=== PATIENT | female | born 1985 | race Caucasian/White ===

== ENCOUNTER 2017-06-13 02:14 | Emergency (ER) | payer BC ==
[~2017-06-13 02:14] MED LIST: IBUP600 PO; OXYC1SOL5 PO; PNVPAK PO
--- NOTE | 2017-06-13 02:55 | PD ---
HPI Chief Complaint 35 weeks and 6 days vaginal bleed Travel History International Travel<30 Days: No Contact w/Intl Traveler<30Days: No Known Affected Area: No History of Present Illness HPI Pt is a 31 yo at 35 weeks and 6 days Pt has EDC 07-12-[address] Daley. Care complicated by previous C Section for arrest of cervical dilatation. Patient reports bright red vaginal bleeding when she used the bathroom. No ongoing bleeding. Patient denies any abdominal pain or contractions. Patient reports active movements Patient is Rh positive. Patient is planning a Weeks Gestation: 35 Para: 1 : 2 History Past Medical History Medical History: Denies Significant Hx Obstetric History Obstetric History Previous c section Past Surgical History Narrative Surgical previous C Section Family History Family History: Negative Social History Alcohol Use: No Tobacco Use: No Substance Abuse: No Allergies-Medications (Allergen,Severity, Reaction): Coded Allergies: No Known Allergies (Unverified , 01/22/15) Home Meds Active Scripts Oxycodone W/ Acetaminophen (Oxycodone/Acetaminophen 5-325 mg/5Ml) 1 Tab Tab, 1 TAB PO Q4H Y for PAIN SCALE 3 TO 5, #30 TAB Prov:Tracie Patiño MD 01/25/15 Ibuprofen (Motrin 600 Mg Tab) 600 Mg Tab, 600 MG PO Q6H Y for CRAMPING, #30 TAB Prov:Tracie Patiño MD 01/25/15 Reported Medications W/O Vit A W/ Fe Carbo (Pnv Ob+Dha) Ermias, 1 CAP PO, ERMIAS 01/22/15 Review of Systems Except as stated in HPI: all other systems reviewed are Neg Physical Exam Narrative GENERAL: Well-nourished, well-developed patient. SKIN: Warm and dry. HEAD: Normocephalic and atraumatic. EYES: No scleral icterus. No injection or drainage. ENT: No nasal drainage noted. Mucous membranes pink. Airway patent. NECK: Supple, trachea midline. No JVD. CARDIOVASCULAR: Regular rate and rhythm without murmurs, gallops, or rubs. RESPIRATORY: Breath sounds equal bilaterally. No accessory muscle use. BREASTS: Bilateral exam showed no masses , no retractions, no nipple discharge. ABDOMEN/GI: Abdomen soft, non-tender, bowel sounds present, no rebound, no guarding Gravid to [36] weeks size Fundal Height: [36cm] GENITOURINARY: External Genitalia: intact and normal in appearance BUS glands: [wnl] SSE: speculum introduced gently, and cervix visualized. No active vaginal bleeding noted. Cervix appears closed. small amount of dark blood noted. Cervix: [firm] Dilatation: [closed] Effacement: [30%] Station: [-3] Presentation: [vertex] Membranes: [intact] Uterine Contractions: [every 3 minutes] patient not feeling them FHT's: Category: [1] Baseline: [130s] Reactive: [-] Variability: [moderate] Decels: [-] EXTREMITIES: No cyanosis or edema. BACK: Nontender without obvious deformity. No CVA tenderness. NEUROLOGICAL: Awake and alert. Motor and sensory grossly within normal limits. Five out of 5 muscle strength in all muscle groups. Normal speech. Data Data Vital Signs Reviewed: Yes MDM Plan Patient is a 31 yo at 35 weeks and 6 days with c/o vaginal bleeding. status reassuring No ongoing bleeding noted. No abdominal pain Active movements Contractions noted every 3 minutes and IVF started. Contractions resolved after IVF No further vaginal bleeding. Will DC home. Diagnosis Diagnosis: Primary Impression: 35 weeks gestation of Additional Impressions: with third trimester bleeding uterine contractions in third trimester, antepartum Disposition: DISCHARGE HOME Condition: Good [place] MD Jun 13, 2017 02:55
[2017-06-13 03:01] LABS: BACTERIA, URINE RARE /hpf; BILIRUBIN, URINE NEG (NEG); BLOOD, URINE MOD (NEG); GLUCOSE,URINE NEG (NEG); KETONE, URINE NEG (NEG); MUCUS URINE FEW /lpf (OCC); NITRITE,URINE NEG (NEG); PH, URINE 6.5 (5.0-8.5); SQUAMOUS EPITHELIAL CELL URINE 4 /hpf (0-5); URINE COLOR YELLOW (YELLW/STRAW); URINE LEUKOCYTE ESTERASE NEG (NEG)
[2017-06-13] MEDS ORDERED: LACTATED RINGER'S 1000 ML INJ 1,000 ML IV ONE (03:15)
[2017-06-13 03:24] LABS: AUTOMATED NEUTROPHIL # 2.8 TH/MM3 (1.8-7.7); BASOPHIL % 0.4 % (0.0-2.0); EOSINOPHIL % 0.5 % (0.0-4.0); HEMATOCRIT 28.5 % (35.0-46.0); HEMOGLOBIN 10.3 GM/DL (11.6-15.3); LYMPH % 34.2 % (9.0-44.0); LYMPHOCYTE # 1.7 TH/MM3 (1.0-4.8); MEAN CELL VOLUME 95.6 FL (80.0-100.0); MEAN CORPUSCULAR HEMOGLOBIN 34.7 PG (27.0-34.0); MEAN PLATELET VOLUME 8.8 FL (7.0-11.0); MONO % 9.3 % (0.0-8.0); MONOCYTE # 0.5 TH/MM3 (0-0.9); NEUT % 55.6 % (16.0-70.0); PLATELET COUNT 188 TH/MM3 (150-450); RED BLOOD COUNT 2.98 MIL/MM3 (4.00-5.30); RED CELL DISTRIBUTION WIDTH 12.9 % (11.6-17.2); WHITE BLOOD COUNT 5.1 TH/MM3 (4.0-11.0)
[2017-06-13 03:29] LABS: MEAN CORPUSCULAR HGB CONC 36.3 % (32.0-36.0)
[2017-06-13 03:33] LABS: BICARBONATE 22.7 MEQ/L (21.0-32.0); CALCIUM 8.1 MG/DL (8.5-10.1); CREATININE 0.49 MG/DL (0.50-1.00)
== END 2017-06-13 04:10 | disposition home or self-care (01) ==
LOC: HOBED 02:14
DX: O46.93 Antepartum hemorrhage, unspecified, third trimester (principal); O60.03 Preterm labor without delivery, third trimester; O34.219 Maternal care for unspecified type scar from previous cesarean delivery; Z3A.35 35 weeks gestation of pregnancy
CPT/HCPCS: 59025; 80048; 81001; 85025; 96360

== ENCOUNTER 2017-07-11 10:22 | Inpatient (IN) | payer BC ==
[~2017-07-11] VITALS: Ht 160 cm; Wt 65.8 kg
[2017-07-11] VITALS (9 sets, daily range): BP systolic 103–116; BP diastolic 53–70; PULSE 63–95; RESP 7–20; TEMP 97.3–98.4; O2SAT 97–100
[2017-07-11 11:13] LABS: AUTOMATED NEUTROPHIL # 3.3 TH/MM3 (1.8-7.7); BASOPHIL % 0.4 % (0.0-2.0); EOSINOPHIL % 0.4 % (0.0-4.0); HEMATOCRIT 32.5 % (35.0-46.0); HEMOGLOBIN 11.1 GM/DL (11.6-15.3); LYMPH % 25.2 % (9.0-44.0); LYMPHOCYTE # 1.2 TH/MM3 (1.0-4.8); MEAN CELL VOLUME 93.9 FL (80.0-100.0); MEAN CORPUSCULAR HEMOGLOBIN 32.1 PG (27.0-34.0); MEAN CORPUSCULAR HGB CONC 34.2 % (32.0-36.0); MEAN PLATELET VOLUME 9.1 FL (7.0-11.0); MONO % 7.6 % (0.0-8.0); MONOCYTE # 0.4 TH/MM3 (0-0.9); NEUT % 66.4 % (16.0-70.0); PLATELET COUNT 232 TH/MM3 (150-450); RED BLOOD COUNT 3.46 MIL/MM3 (4.00-5.30); RED CELL DISTRIBUTION WIDTH 13.2 % (11.6-17.2)
[2017-07-11] MEDS ORDERED: CITRIC ACID-SODIUM CITRATE LIQ 30 ML UDC PO SCH (11:15)
[2017-07-11] MEDS ORDERED: ceFAZolin 2 GM PREMIX 50 ML IV SCH (11:15)
[2017-07-11 11:29] LABS: BILIRUBIN, URINE NEG (NEG); BLOOD, URINE NEG (NEG); GLUCOSE,URINE NEG (NEG); KETONE, URINE TRACE mg/dL (NEG); MUCUS URINE FEW /lpf (OCC); NITRITE,URINE NEG (NEG); SQUAMOUS EPITHELIAL CELL URINE 22 /hpf (0-5); URINE COLOR YELLOW (YELLW/STRAW); URINE LEUKOCYTE ESTERASE TRACE (NEG)
[2017-07-11 11:30] LABS: BACTERIA, URINE OCC /hpf
[2017-07-11] MEDS ORDERED: LACTATED RINGER'S 1000 ML INJ 2,000 ML IV ONE (12:00)
[2017-07-11] MEDS ORDERED: OXYTOCIN 10 UNIT/ML AMP IV ONE (12:00)
[2017-07-11] MEDS ORDERED: LACTATED RINGER'S 1000 ML IV ONE (12:00)
[2017-07-11] MEDS ORDERED: ONDANSETRON HCL 4 MG/2 ML VIAL IV ONE (12:00)
[2017-07-11] MEDS ORDERED: LIDOCAINE HCL 1% PF 5 ML SYRINGE OTHER ONE (12:00)
[2017-07-11] MEDS ORDERED: DEXAMETHASONE SOD PHOS 4 MG/ML VIAL IV ONE (12:00)
[2017-07-11] MEDS ORDERED: ePHEDrine/NS 25 MG/5 ML SYRINGE IV ONE (12:00)
[2017-07-11] MEDS ORDERED: LACTATED RINGER'S 1000 ML IV SCH (12:00)
[2017-07-11] MEDS ORDERED: SODIUM CHLORIDE 0.9% FLUSH 10 ML FLUSH IV FLUSH PRN (12:30)
[2017-07-11] MEDS ORDERED: ONDANSETRON HCL 4 MG/2 ML VIAL IV PUSH PRN (12:30)
[2017-07-11] MEDS ORDERED: KETOROLAC TROMETHAMINE 60 MG/2 ML (IM) VIAL IM PRN (12:30)
[2017-07-11] MEDS ORDERED: OXYTOCIN 30 UNITS-500ML PREMIX 500 ML IV ONE (12:30)
[2017-07-11] MEDS ORDERED: MORPHINE SULFATE PF 5 MG/10 ML VIAL ONE (12:30)
[2017-07-11] MEDS ORDERED: LACTATED RINGER'S 1000 ML INJ 1,000 ML IV ONE (14:00)
[2017-07-11] MEDS ORDERED: OXYTOCIN 30 UNITS-500ML PREMIX 500 ML ONE (14:48)
[2017-07-11] MEDS ORDERED: DO NOT ADM ANY ANTICOAGULANT DRUGS PRN (15:30)
[2017-07-11] MEDS ORDERED: LACTATED RINGER'S 1000 ML INJ 1,000 ML IV SCH (17:21)
[2017-07-11] MEDS: SODIUM CHLORIDE 0.9% FLUSH 10 ML FLUSH IV FLUSH SCH (20:54)
[2017-07-11] MEDS ORDERED: OXYTOCIN 30 UNITS-500ML PREMIX 500 ML IV PRN (22:30)
[2017-07-12] MEDS: oxyCODONE/ACETAMINOPHEN 5 MG/325 MG TAB PO PRN ×4 (03:07→21:03)
[2017-07-12] MEDS: IBUPROFEN 600 MG TAB PO PRN ×4 (03:07→21:03)
[2017-07-12 04:00] VITALS: BP 94/55; PULSE 72; RESP 16; TEMP 97.8; O2SAT 98
[2017-07-12 05:52] LABS: AUTOMATED NEUTROPHIL # 6.2 TH/MM3 (1.8-7.7); BASOPHIL % 0.2 % (0.0-2.0); EOSINOPHIL % 0.1 % (0.0-4.0); HEMATOCRIT 29.1 % (35.0-46.0); HEMOGLOBIN 10.1 GM/DL (11.6-15.3); LYMPHOCYTE # 1.2 TH/MM3 (1.0-4.8); MEAN CELL VOLUME 93.2 FL (80.0-100.0); MEAN CORPUSCULAR HEMOGLOBIN 32.3 PG (27.0-34.0); MEAN CORPUSCULAR HGB CONC 34.7 % (32.0-36.0); MEAN PLATELET VOLUME 8.6 FL (7.0-11.0); MONOCYTE # 0.4 TH/MM3 (0-0.9); NEUT % 79.7 % (16.0-70.0); PLATELET COUNT 174 TH/MM3 (150-450); RED BLOOD COUNT 3.12 MIL/MM3 (4.00-5.30); RED CELL DISTRIBUTION WIDTH 12.9 % (11.6-17.2); WHITE BLOOD COUNT 7.7 TH/MM3 (4.0-11.0)
[2017-07-12 08:00] VITALS: BP 95/61; PULSE 74; RESP 16; TEMP 97.9; O2SAT 97
[2017-07-12 11:53] VITALS: BP 110/76; PULSE 88; RESP 18; O2SAT 99
--- NOTE | 2017-07-12 12:46 | HHI.OB ---
Subjective Post Operative Day: 1 Remarks Pt doing well, good pain control, tolerating po, ambulating well Objective Vitals/I&O Vital Signs Date Time Temp Pulse Resp B/P (MAP) Pulse Ox O2 Delivery O2 Flow Rate FiO2 07/12/17 04:00 97.8 72 16 94/55 (68) 98 07/11/17 23:23 98.4 63 18 105/53 (70) 98 07/11/17 20:00 97.3 73 16 108/64 (79) 97 07/11/17 17:05 87 110/68 (82) 07/11/17 17:05 97.8 16 07/11/17 15:00 97.3 7 108/65 (79) 07/11/17 15:00 79 16 07/11/17 14:40 97.5 14 100 07/11/17 14:40 89 109/70 (83) 07/11/17 14:22 19 07/11/17 14:18 88 9 116/66 (83) 07/11/17 14:18 100 07/11/17 14:00 95 20 100 07/11/17 14:00 103/53 (70) 07/11/17 13:48 97.7 86 20 109/60 (76) 97 Result Diagram: 07/12/17 0540 Objective Remarks GENERAL: Well-nourished, well-developed patient. CARDIOVASCULAR: Regular rate and rhythm without murmurs, gallops, or rubs. RESPIRATORY: Breath sounds equal bilaterally. No accessory muscle use. ABDOMEN/GI: Abdomen soft, non-tender, bowel sounds present. Incision: Clean, dry and intact. Fundus: Firm, non-tender at umbilicus. GENITOURINARY: Light to moderate bleeding. EXTREMITIES: No cyanosis or edema, non-tender, without signs of DVT. Medications and IVs Current Medications Medications (Trade) Dose Ordered Sig/Kaylen Route Start Time Stop Time Status Last Admin (Bicitra Liq) 30 ml [employer]FA[employer]ING [employer]CH[employer]ICIAN PO 07/11/17 11:15 07/14/17 11:14 07/11/17 12:13 Lactated Ringer's 1,000 ml @ 100 mls/hr Q10H IV 07/11/17 17:21 07/12/17 13:20 07/11/17 20:54 Oxytocin 500 ml @ 100 mls/hr UNSCH X1 PRN IV 07/11/17 22:30 07/12/17 22:29 (NS Flush) 2 ml BID IV FLUSH 07/11/17 21:00 07/11/17 20:54 (NS Flush) 2 ml UNSCH PRN IV FLUSH 07/11/17 12:30 (Motrin) 600 mg Q6H PRN PO 07/11/17 12:30 07/12/17 09:09 (Percocet 5-325 Mg) 1 tab Q4H PRN PO 07/11/17 12:30 07/12/17 09:09 (Percocet 5-325 Mg) 2 tab Q4H PRN PO 07/11/17 12:30 (M-M-R Ii Inj) 0.5 ml ONCE ONCE SQ 07/12/17 16:00 07/12/17 16:01 (Boostrix Inj) 0.5 ml ONCE ONCE IM 07/12/17 16:00 07/12/17 16:01 (Zofran Inj) 4 mg Q6H PRN IV PUSH 07/11/17 12:30 Miscellaneous Information ALL NURSING DEPARTME... UNSCH PRN .XX 07/11/17 15:30 07/12/17 15:29 Assessment/Plan Assessment and Plan POD # 1 s/p repeat c/s doing well, routine care Tonya Daley MD Jul 12, 2017 12:46
--- NOTE | 2017-07-12 14:57 | MP ---
cc: AMINAH STOKES M.D. DATE OF SURGERY 07/11/2017 PREOPERATIVE DIAGNOSIS Intrauterine at 40+ weeks gestation with previous section. POSTOPERATIVE DIAGNOSIS Intrauterine at 40+ weeks gestation with previous section. PROCEDURE PERFORMED Repeat low transverse section. OPERATING SURGEON Dr. Aminah Stokes. ANESTHESIA Spinal. FINDINGS Findings in surgery included a viable female weighing 8 pounds 5 ounces without Apgars of 9 and 9. ESTIMATED BLOOD LOSS 800 cc. COMPLICATIONS None. PROCEDURE IN DETAIL Proper consents were obtained. The patient was taken to the operating room where spinal anesthetic was placed. She was then placed in a dorsal position, sterilely prepped and draped and a Horvath catheter was placed. At this time using a sharp knife a revision of her prior Pfannenstiel skin incision was performed. This was carried down to the fascia using Bovie cautery. The fascia was nicked in the midline and extended superolaterally on each side. We then had sharp and blunt dissection of the muscles off of the fascia. The peritoneum was identified, grasped with two hemostats and entered sharply with Metzenbaum scissors. This was then extended superiorly and inferiorly paying close attention to the bladder. A bladder blade was placed. The bladder flap was developed. The bladder blade was replaced. A transverse incision was made in the lower uterine segment. Rupture of membranes revealed clear fluid. The incision was extended using a finger fracture technique. We then had a controlled delivery of the vertex. We used the vacuum to complete the delivery. There was then bulb suction to the oropharynx and the nares. The body was delivered. The cord was clamped x2, cut in between and the was handed to the team in attendance, a viable female 8 pounds 5 ounces with Apgars 9 and 9. At this time a cord blood sample was obtained. The placenta was removed and the uterus was wiped clean of clots and debris. I closed the incision using a 1-0 chromic suture starting at each apex and meeting in the midline in a running interlocking fashion. Excellent hemostasis was noted. Irrigation was performed of the abdominopelvic cavity. Hemostasis was assured. We re-approximated the muscles using a #1 chromic suture x1. We then closed the fascia starting at each apex and meeting in the midline in a running fashion using 0 Vicryl. The subcutaneous tissue was irrigated. Hemostasis was assured with Bovie cautery. We placed some interrupted sutures of 3-0 Vicryl in the space to eliminate it. We then went ahead and closed the skin with devyn. All sponge, lap and needle count were correct x3. MD PATRICIA Driver/JUAN LUIS /7:46 AM /2:38 PM
[2017-07-12 16:00] VITALS: BP 107/74; PULSE 75; RESP 16; TEMP 98.1
[2017-07-12] MEDS ORDERED: MEASLES, MUMPS, RUBELLA VACCINE 0.5 ML VIAL SQ ONE (16:00)
[2017-07-12] MEDS ORDERED: DIPHTH/TETANUS/ACEL PERTUSSIS (BOOSTER) 0.5 ML VIAL/PFS IM ONE (16:00)
[2017-07-12] MEDS: SODIUM CHLORIDE 0.9% FLUSH 10 ML FLUSH IV FLUSH SCH (19:08)
[2017-07-12 20:00] VITALS: BP 115/58; PULSE 87; RESP 18; TEMP 98.3; O2SAT 99
[2017-07-13] MEDS: IBUPROFEN 600 MG TAB PO PRN ×3 (03:17→14:45)
[2017-07-13] MEDS: oxyCODONE/ACETAMINOPHEN 5 MG/325 MG TAB PO PRN ×3 (03:17→14:45)
[2017-07-13 08:00] VITALS: BP 105/66; PULSE 82; RESP 16; TEMP 98.6
[2017-07-13] MEDS ORDERED: OXYC1TAB63 PO (12:34)
--- NOTE | 2017-07-13 12:34 | HHI.DCPOC ---
Discharge Care Plan Your Health Problems Are: delivery Report Symptoms to Your Doctor -Temperature above 100.5 degrees -Redness, of incision or excessive or foul smelling drainage -Unusual pain or calf pain -Increased vaginal bleeding -Painful or difficulty urinating -Feelings of extreme sadness or anxiety after 2 weeks Goals to Promote Your Health * To prevent worsening of your condition and complications * To maintain your health at the optimal level Directions to Meet Your Goals Take your medications as prescribed Follow your dietary instruction Follow activity as directed Ensure plenty of rest for recovery Drink fluids for hydration Keep your appointments as scheduled Take your immunizations and boosters as scheduled If your symptoms worsen call your PCP, if no PCP go to Urgent Care Center or Emergency Room Smoking is Dangerous to Your Health. Avoid second hand smoke Call the 24-hour crisis hotline for domestic abuse at Tonya Daley MD Jul 13, 2017 12:34
--- NOTE | 2017-07-13 12:36 | HHI.DS ---
Admission Date Jul 11, 2017 at 10:22 Discharge Date: Jul 13, 2017 Admitting Diagnosis IUP at 40 + wks with previous c/s Diagnosis: : Repeat Infant: Female Pt Condition on Discharge: Good Discharge Disposition: Discharge Home Discharge Instructions Diet Instructions: As Tolerated, No Restrictions Activities You Can Perform: Pelvic Rest Tonya Daley MD Jul 13, 2017 12:36
== END 2017-07-13 14:53 | disposition home or self-care (01) | DRG 766 ==
LOC: H2EB 10:22 → H1EA 15:14
PROVIDERS: ADMIT Obstetrics & Gynecology; ATTEND Obstetrics & Gynecology
PROC: 10D00Z1 Extraction of Products of Conception, Low, Open Approach (ICD-10-PCS; principal; 2017-07-11)
DX: O34.211 Maternal care for low transverse scar from previous cesarean delivery (principal); Z37.0 Single live birth; Z3A.40 40 weeks gestation of pregnancy
CPT/HCPCS: 59025; 80307; 81001; 85025; 86850; 86900; 86901; 90715; J0690; J1100; J2274; J2405; J2590; J7120